=== PATIENT | female | born 1975 | race Caucasian/White ===

== ENCOUNTER 2017-02-27 08:07 | Inpatient (IN) | payer OTHER ==
[~2017-02-27] VITALS: Ht 170.2 cm; Wt 63.5 kg
--- NOTE | 2017-02-27 19:25 | NUR ---
PRE - ADMISSION NOTE : Patient is a 41-year-old female who presents to [facility] for evaluation of medically supervised withdrawal from alcohol on 02/27/2017. The patient denies a history of withdrawal-induced seizures. She is NKA, FULL CODE, on Reg.Diet. Pt. doesnt have Primary Care Provider at this time. The patient reports consuming 2 glasses of wine on a daily basis, last consumed on the day of admission. She reports also consuming various stimulant medications including Adderall and Vyvanse, last consumed on 02/02/2017. She has struggled with multiple attempts at sobriety, the longest being for three weeks, last achieved six months prior to admission. Pt. denies history of SI/HI, denies history of audio and video hallucinations. At the time of assessment , the patient complains of increased level of anxiety, felt tremor , mild headache, restlessness. EZ=586/100, LI=048, TEMP=98.4, PAIN=0, RR=16, unlabored and even. Pt is cooperative. Speech is clear and audible. Heart rate is regular. Pt denies chest pain or SOB. Pt. will be admitted to the unit.
[2017-02-27] MEDS ORDERED: MAG HYDROX/AL HYDROX/SIMETH 30 ML LIQUID UDC PO PRN (20:15)
[2017-02-27] MEDS ORDERED: DICYCLOMINE HCL 20 MG TABLET PO PRN (20:15)
[2017-02-27] MEDS ORDERED: ONDANSETRON 4 MG/2 ML VIAL IM PRN (20:15)
[2017-02-27] MEDS ORDERED: ONDANSETRON ODT 4 MG TAB.RAPDIS SL PRN (20:15)
[2017-02-27] MEDS ORDERED: IBUPROFEN 600 MG TABLET PO PRN (20:15)
[2017-02-27] MEDS ORDERED: diphenhydrAMINE 50 MG CAPSULE PO PRN (20:15)
[2017-02-27] MEDS ORDERED: LORAZEPAM 2 MG/1 ML VIAL IM PRN (20:15)
[2017-02-27] MEDS ORDERED: PATIENT MAY USE OWN MED- MD OK PO SCH (20:15)
[2017-02-27] MEDS ORDERED: LORAZEPAM 1 MG TABLET PO PRN ×2 (20:15)
[2017-02-27] MEDS ORDERED: MIRALAX 17 GM POWD.PACK PO PRN (20:15)
[2017-02-27] MEDS ORDERED: ACETAMINOPHEN 325 MG TABLET PO PRN (20:15)
[2017-02-27] MEDS ORDERED: MAGNESIUM HYDROXIDE 30 ML LIQUID UDC PO PRN (20:15)
[2017-02-27] MEDS ORDERED: LOPERAMIDE HCL 2 MG CAPSULE PO PRN ×2 (20:15)
[2017-02-27] MEDS ORDERED: CLONIDINE HCL 0.1 MG TABLET PO PRN (20:15)
[2017-02-27] MEDS ORDERED: THIAMINE HCL 200 MG/2 ML VIAL IM ONE (20:15)
--- NOTE | 2017-02-27 21:00 | NUR ---
ADMISSION NOTE : Patient is a 41-year-old female who presents to [facility] for evaluation of medically supervised withdrawal from alcohol on 02/27/2017.. The patient denies a history of withdrawal-induced seizures. She is NKA, FULL CODE, on Reg.Diet. Pt. doesnt have Primary Care Provider at this time. The patient reports consuming 2 glasses of wine on a daily basis, last consumed on the day of admission. She reports also consuming various stimulant medications including Adderall and Vyvanse, last consumed on 02/02/2017. She has struggled with multiple attempts at sobriety, the longest being for three weeks, last achieved six months prior to admission. She has never been to a formal treatment program in the past. She states her alcohol use has negatively impacted her life by impairing close relationships, impairing work productivity, and negatively impacting her physical and mental health . Pt. denies history of SI/HI, denies history of audio and video hallucinations. At the time of admission, the patient complains of increased level of anxiety, felt tremor , mild headache, restlessness. FY=974/100, VB=560, TEMP=98.4, PAIN=0, RR=16, unlabored and even. Pt is cooperative. Speech is clear and audible. Heart rate is regular. CIWA=6. Pt denies chest pain or SOB. Pt. was oriented to the init and her room , encourage to take more liquids for detoxication process. Pt. was able to provide UDS sample , see results in the PC chart. Safety measures in place : bed on lowest position with side rails x2 up for safety, call light within reach. Will continue to monitor closely and offer help. SUBSTANCE USE HISTORY 1.ETOH/WINE 2 glasses QD PO last 7 years, last use on 02/27/2017 , uses since 2004 Pt. used Vyvense 70 mg QD PO last 8 mo., last use on 02/02/2017, used since 1999 Pt. used Adderal 40 mg QD PO last 8 mo., last use on 02/02/2017, used since 1999 Pt. is non-smoker [place] HISTORY : Multiple attempts PAST MEDICAL HISTORY : 1. Attention deficit hyperactivity disorder 2. Right wrist fracture Past Surgical History Surgical history: None Past Family History Family history: CAD (father)
[2017-02-27 21:20] LABS: *URINE HCG, QUAL NEGATIVE (NEGATIVE)
[2017-02-27 21:24] LABS: BASOPHILS # (AUTO) 0.1 K/uL (0.0-8.0); EOSINOPHILS # (AUTO) 0.2 K/uL (0.0-0.7); EOSINOPHILS % (AUTO) 2.8 % (0.0-7.0); HEMATOCRIT 41.3 % (31.2-41.9); HEMOGLOBIN 14.4 g/dL (10.9-14.3); LYMPHOCYTES # (AUTO) 2.9 K/uL (20.0-40.0); LYMPHOCYTES % (AUTO) 41.8 % (20.5-51.5); MEAN CORPUSCULAR HEMOGLOBIN 31.6 uug (24.7-32.8); MEAN CORPUSCULAR HGB CONC 35 g/dL (32.3-35.6); MEAN CORPUSCULAR VOLUME 90.9 fL (75.5-95.3); MONOCYTES # (AUTO) 0.4 K/uL (2.0-10.0); MONOCYTES % (AUTO) 5.4 % (0.0-11.0); NEUTROPHILS # (AUTO) 3.4 K/uL (1.8-8.9); PLATELET COUNT (AUTO) 364 K/uL (179-408); RED BLOOD CELL COUNT(AUTO) 4.55 MIL/uL (3.63-4.92)
[2017-02-27 21:27] LABS: *AMPHETAMINE, URINE NEGATIVE (NEGATIVE); *BARBITURATE, URINE NEGATIVE (NEGATIVE); *CANNABINOID, URINE NEGATIVE (NEGATIVE); *COCCAINE, URINE NEGATIVE (NEGATIVE); *OPIATE, URINE NEGATIVE (NEGATIVE); *PHENCYCLIDINE SCREEN,URINE NEGATIVE (NEGATIVE)
[2017-02-27] MEDS ORDERED: GABA-532 PO (21:33)
[2017-02-27 21:37] LABS: BILIRUBIN,TOTAL 0.4 mg/dL (0.2-1.0); CREATININE 0.8 mg/dL (0.6-1.3); POTASSIUM 4.2 mmol/L (3.5-5.1); TOTAL PROTEIN, SERUM 7.4 g/dL (6.4-8.2)
[2017-02-27 21:46] LABS: THYROID STIMULATING HORMONE 4.51 mIU/mL (0.358-3.740)
--- NOTE | 2017-02-27 22:00 | NUR ---
ASSUMED CARE FOR PATIENT Report received from CLEMENT Schafer.
[2017-02-27] MEDS ORDERED: THIAMINE HCL 200 MG/2 ML VIAL ONE (22:12)
--- NOTE | 2017-02-28 | NUR ---
MIDNIGHT VITALS REFUSED, CIWA DEFERRED Patient refused midnight vitals, CIWA deferred due to patient asleep; to be assessed and scored while patient is awake, per protocol. Patient's respirations are 16/min, even and unlabored. Safety measures in place, bed locked in low position, side rails up x2, call light within reach. Will continue to monitor.
--- NOTE | 2017-02-28 04:00 | NUR ---
4AM VITALS REFUSED, CIWA DEFERRED Patient refused 4AM vitals, CIWA deferred due to patient asleep; to be assessed and scored while patient is awake, per protocol. Patient's respirations are 16/min, even and unlabored. Safety measures in place, bed locked in low position, side rails up x2, call light within reach. Will continue to monitor.
[2017-02-28] MEDS ORDERED: TRIA80OI TP (07:00)
[2017-02-28] MEDS ORDERED: NEOM28.36 TP (07:00)
[2017-02-28] MEDS ORDERED: HYDR453.4 TP (07:00)
[2017-02-28] MEDS ORDERED: MICO15CR4 TP (07:00)
--- NOTE | 2017-02-28 07:10 | NUR ---
END OF SHIFT Patient is a 41-year-old female admitted 02/27/17 for ETOH dependence. Patient reports a past medical history of depression, ADHD, and recent right wrist fracture. Patient is currently wearing a brace on her right wrist. Patient is FULL code, NKA to food or drugs, and on a regular diet. Patient is on fall and seizure precautions with no history of seizures. Patient slept for 6 hours, total intake of 1,512 mL, void x 2, stool x0. Patient did not receive any PRNs. Last CIWA score was 2. Safety measures in place, bed locked in low position, side rails up x2, call light within reach. Will endorse to day shift.
--- NOTE | 2017-02-28 07:11 | NUR ---
Start of Shift Notes: Received patient in his room. Alert and verbally responsive. Oriented x 4 Able to make her needs known. Respirations even and unlabored. No SOB noted. Skin warm and dry to touch. Abdomen soft and non-distended with (+) BS in all 4 quadrants. No complains of N/V/D or abdominal discomfort noted. Bladder non-distended. Voids independently. Ambulatory ad steffany with steady gait. Patient is a 41 year old female admitted for ETOH dependence who was placed on PRN Ativan at this time. Prior to admission, patient was using 2 glasses of wine daily x 7 years. Has past medical hx of depression, and right wrist fracture. NKA. FULL CODE. Regular diet. On fall and seizure precautions. Educated patient on her current plan of care for the day and her medication regimen. Encouraged oral fluid intake and encouraged group participation to learn new skills to prevent relapse. Will continue to monitor.
[2017-02-28 08:00] VITALS: BP 124/69
[2017-02-28] MEDS: FOLIC ACID 1 MG TABLET PO SCH (08:40)
[2017-02-28] MEDS: THIAMINE HCL 100 MG TABLET PO SCH (08:41)
[2017-02-28] MEDS: MULTIVITAMINS,THERAPEUTIC TABLET PO SCH (08:41)
--- NOTE | 2017-02-28 08:41 | NUR ---
Motrin 400 mg PO given/Ativan 1 mg PO PRN given: Patient noted with complain of 4/10 right wrist pain r/t fracture and requested for pain aid. Noted with CIWA 7, presented with moderate anxiety, restlessness, agitation and mild sweats. UT 101. Medicated patient with Motrin 400 mg PO as ordered and Ativan 1 mg PO as ordered. Will monitor for effectiveness.
[2017-02-28] MEDS ORDERED: TUBERCULIN,PURIF.PROT.DERIV. 5 TU/0.1 ML TEST ID ONE (09:00)
--- NOTE | 2017-02-28 09:41 | NUR ---
Re-assessment: Motrin/Ativan Patient verbalizes that she feels less anxious and less agitated. PL 0/10. PRN Motrin and Ativan were effective in reducing patient's pain and anxiety. CIWA 4.
--- NOTE | 2017-02-28 10:30 | NUR ---
Tylenol 650 mg PO given: Patient noted with complain of 4/10 pain to right wrist. Patient states that she took off her brace and accidentally removed it too suddenly causing pain on the right wrist. Educated patient to keep brace on at all times. Medicated patient with Tylenol 650 mg PO as ordered. Will monitor for effectiveness.
[2017-02-28] MEDS ORDERED: LISD70CA PO (10:52)
[2017-02-28] MEDS ORDERED: AMPH15TA2 PO (10:52)
--- NOTE | 2017-02-28 10:57 | NUR ---
MD Orders: Patient notified MD of ongoing intermittent abdominal pain. Liver functions reviewed by MD with orders for patient to have further labs and abdominal US without any need to be NPO. Radiology aware.
--- NOTE | 2017-02-28 11:19 | NUR ---
Order clarification: Per US tech, Tobi and MD Quiroz. Patient needs to be NPO at this time. US will be done at 1600 today.
--- NOTE | 2017-02-28 11:30 | NUR ---
Re-assessment: Tylenol Per patient, PRN Tylenol was effective in reducing patient's right wrist pain. PL 03/22.
[2017-02-28 12:00] VITALS: BP 94/61
[2017-02-28] MEDS ORDERED: GABAPENTIN 100MG PO SCH (12:44)
--- NOTE | 2017-02-28 14:35 | NUR ---
Abdominal US: Abdominal US done at this time. Results pending. MD aware. Per MD, patient is to resume regular diet as tolerated. Will continue to monitor.
[2017-02-28 16:00] VITALS: BP 124/80
[2017-02-28 18:41] LABS: BILIRUBIN,DIRECT 0.1 mg/dL (0.0-0.2); BILIRUBIN,TOTAL 0.4 mg/dL (0.2-1.0)
[2017-02-28 18:50] LABS: THYROID STIMULATING HORMONE 1.832 mIU/mL (0.358-3.740)
--- NOTE | 2017-02-28 19:02 | NUR ---
End of Shift Notes: Patient continues to be on PRNs at this time. VS monitored closely. No significant abnormalities noted. Withdrawal symptoms were closely monitored. Initial CIWA 7, patient presented with moderate anxiety and agitation, and mild sweats. Medicated patient with Motrin 400 mg PO and Ativan 1 mg PO per CIWA score at 0841 with help after 1 hour. Last CIWA 2. At 1030, patient was medicated with Tylenol for right wrist pain with help after 1 hour. Patient requires encouragement to attend group and activities due to episodes of self isolation and appears withdrawn. Requires constant reassurance and redirection. Per patient, Ativan has been effective in reducing her withdrawal symptoms. Denies S/I or H/I noted. Denies AV hallucinations. All needs met and attended. Will continue to monitor closely.
--- NOTE | 2017-02-28 19:15 | NUR ---
Start of Shift Patient Received. Patient is in her room, awake, alert, and verbally responsive. Breathing even and non labored. Patient is a 41 year old female admitted on 02/27/17 for ETOH Dependence under the care of Dr. Quiroz. Patient was placed on PRN Medications for increased signs and symptoms of withdrawal. Patient verbalizes no known allergies, wishes to be full code, following a Regular Diet, placed on fall and seizure precautions, and skin noted intact. Patients past medical history of Depression, and Right wrist fracture. Per endorsement, patient was given PRN Motrin, Tylenol, and Ativan 1mg with all medications noted to be effective. Last noted CIWA 2. All needs attended to promptly. Will continue plan of care as ordered.
[2017-02-28 20:12] VITALS: BP 129/83
[2017-02-28] MEDS: GABAPENTIN 100MG PO SCH (20:36)
[2017-02-28] MEDS ORDERED: PATIENT MAY USE OWN MED- MD OK PO SCH (21:00)
[2017-03-01 06:06] LABS: HEPATITIS B SURFACE AG Negative (Negative)
--- NOTE | 2017-03-01 06:59 | NUR ---
End of Shift Patient is in bed sleeping. Breathing even and non labored. Patient is a 41 year old female admitted on 02/27/17 for ETOH Dependence under the care of Dr. Quiroz. Patient was placed on PRN Medications for increased signs and symptoms of withdrawal. No Known Allergies, Full Code, Regular Diet, placed on fall and seizure precautions, and skin noted intact. Patients past medical history of Depression, and Right Wrist Fracture. No PRN Medications administered. Last noted CIWA 1. All needs attended to promptly. Will endorse to continue plan of care as ordered.
[2017-03-01 08:00] VITALS: BP 116/67
[2017-03-01] MEDS: MULTIVITAMINS,THERAPEUTIC TABLET PO SCH (09:07)
[2017-03-01] MEDS: GABAPENTIN 100MG PO SCH ×2 (09:07→20:28)
[2017-03-01] MEDS: FOLIC ACID 1 MG TABLET PO SCH (09:08)
[2017-03-01] MEDS: THIAMINE HCL 100 MG TABLET PO SCH (09:08)
[2017-03-01 12:00] VITALS: BP 135/87
--- NOTE | 2017-03-01 14:54 | NUR ---
Therapist prompted client about group times. Client stated she does not want to attend groups. Therapist discussed benefits of group therapy and encouraged client to attend.
[2017-03-01 16:00] VITALS: BP 110/66
--- NOTE | 2017-03-01 18:51 | NUR ---
End of Shift Notes: Patient continues to be on PRNs at this time. VS monitored closely. No significant abnormalities noted. Withdrawal symptoms were closely monitored. Initial CIWA 1, patient presented with mild anxiety. Last CIWA 1. Patient requires encouragement to attend group and activities due to episodes of self isolation and appears withdrawn. Requires constant reassurance and redirection. Per patient, Ativan has been effective in reducing her withdrawal symptoms. Denies S/I or H/I noted. Denies AV hallucinations. All needs met and attended. Will continue to monitor closely.
--- NOTE | 2017-03-01 19:30 | NUR ---
START OF SHIFT Pt is a 41 y/o female admitted on 02/27/17 for wine, Vyvance and Adderall dependence. Pt is full code, NKA, regular diet and on fall/seizure precautions. No known seizure hx. Pt reports PMH of depression and has current right wrist fracture, wrist brace in place. Pt had PRN Ativan available since admission, last dose this morning and is scheduled to be d/c tomorrow. Upon assessment pt presents with anxiety, agitation, restlessness, difficulty sleeping, decreased appetite, intermittent headache, dysphoria and anhedonia. Respirations 16, even and unlabored. Denies N/V/D. Denies chest pain or SOB. Medications due. Safety measures in place. Call light within reach. Will continue to monitor.
[2017-03-01 20:00] VITALS: BP 138/80
[2017-03-01] MEDS ORDERED: IBUP-1955 PO (20:08)
[2017-03-01] MEDS ORDERED: GABA-532 PO (20:08)
[2017-03-01] MEDS ORDERED: DIPH50CA37 PO (20:08)
--- NOTE | 2017-03-01 20:28 | NUR ---
PRN BENADRYL ADMINISTRATION Pt requests sleep aid and appears restless. Safety measures in place. Call light within reach. Will continue to monitor.
--- NOTE | 2017-03-01 21:28 | NUR ---
PRN BENADRYL REASSESSMENT Pt is laying in bed with eyes closed. Respirations 16 even and unlabored. Safety measures in place. Call light within reach. Will continue to monitor.
--- NOTE | 2017-03-02 | NUR ---
CIWA DEFERRED AND VITALS REFUSED Pt is laying in bed with eyes closed, CIWA deferred, to be assessed when pt is awake per orders. Vitals refused. Respirations 16, even and unlabored. Safety measures in place. Call light within reach. Will continue to monitor.
--- NOTE | 2017-03-02 07:29 | NUR ---
END OF SHIFT Pt is a 41 y/o female admitted on 02/27/17 for wine, Vyvance and Adderall dependence. Pt is full code, NKA, regular diet and on fall/seizure precautions. No known seizure hx. Pt reports PMH of depression and has current right wrist fracture, wrist brace in place. Pt had PRN Ativan available since admission, last dose yesterday and is scheduled to be d/c today. Pt presented with anxiety, agitation, restlessness, difficulty sleeping, decreased appetite, intermittent headache, dysphoria and anhedonia. Scheduled medications and PRN Benadryl administered, effective in S/S of withdrawal as verbalized by pt. Last CIWA 3 at 1999. Pt slept 8 hours. Intake 500 ml, void x 1, stool x 0. Safety measures in place. Call light within reach. Pts needs have been met. Endorsed to day shift nurse.
--- NOTE | 2017-03-02 07:30 | NUR ---
start of shift note: received pt from night nurse nurse, pt is in stable condition no s/s of pain or discomfort pt is admitted to [facility] for ETOH/ ADDERALL. PT'S LAST CIWA 3, PT SLEPT 8 HRS. PT IS SET TO DISCHARGE TODAY, WILL ASSIST PT IN DISCHARGING AND CONTINUE TO MONITOR PT FOR ANY CHANGES
[2017-03-02] MEDS: GABAPENTIN 100MG PO SCH (09:23)
[2017-03-02] MEDS: FOLIC ACID 1 MG TABLET PO SCH (09:23)
[2017-03-02] MEDS: THIAMINE HCL 100 MG TABLET PO SCH (09:23)
[2017-03-02] MEDS: MULTIVITAMINS,THERAPEUTIC TABLET PO SCH (09:23)
--- NOTE | 2017-03-02 09:30 | NUR ---
DISCHARGE NOTE: PT LEFT THE UNIT IN STABLE CONDITION NO S/S OF PAIN OR DISCOMFORT. PT TEACHING ADMINISTERED AND PT VERBALIZED UNDERSTANDING. ALL PERSONAL BELONGINGS WERE RETURNED. PT WILL BE TRANSFERRED TO TREATMENT VIA PRIVATE CAR
== END 2017-03-02 09:34 | DRG 895 ==
LOC: EDSEX 19:41 → SRC 19:41
PROVIDERS: ADMIT Internal Medicine; ATTEND Internal Medicine
DX: F10.239 Alcohol dependence with withdrawal, unspecified (principal); E07.81 Sick-euthyroid syndrome; F90.9 Attention-deficit hyperactivity disorder, unspecified type; F15.23 Other stimulant dependence with withdrawal; R74.8 Abnormal levels of other serum enzymes; S62.101D Fracture of unspecified carpal bone, right wrist, subsequent encounter for fracture with routine healing; X58.XXXD Exposure to other specified factors, subsequent encounter; R10.9 Unspecified abdominal pain
CPT/HCPCS: 36415; 70030-TC; 76705; 80307; 83735; 84443; 84703; 85025; 86580; 86592; 86705; 86803; 87340; 87806; G0480; J3411; Q0163